=== PATIENT | male | born 2005 | race Caucasian/White ===

== ENCOUNTER 2023-10-25 05:23 | Emergency (ER) | payer OTHER ==
[~2023-10-25] VITALS: Ht 177.8 cm; Wt 100.0 kg
[2023-10-25] MEDS ORDERED: ADDE15CA3 PO (05:31)
[2023-10-25] MEDS ORDERED: IBUP200C89 PO (05:32)
[2023-10-25] MEDS ORDERED: AMOX875T2 PO (07:09)
[2023-10-25 07:22] VITALS: BP 137/67; TEMP 97.2; O2SAT 100
== END 2023-10-25 07:23 | disposition home or self-care (01) ==
LOC: M ED 05:23
DX: H66.92 Otitis media, unspecified, left ear (principal); F90.9 Attention-deficit hyperactivity disorder, unspecified type; Z79.899 Other long term (current) drug therapy